=== PATIENT | female | born 1935 | race Caucasian/White ===

== ENCOUNTER 2017-07-17 05:42 | Outpatient (CLI) | payer MEDICARE ==
[~2017-07-17] VITALS: Ht 157.5 cm; Wt 71.2 kg
[~2017-07-17 05:42] MED LIST: AMLO5TAB2 PO; ENAL20TA PO; ZONI100C11 PO
[2017-07-17] MEDS ORDERED: AMLO5TAB2 PO (11:10)
[2017-07-17] MEDS ORDERED: ENAL20TA PO (11:10)
== END 2017-07-17 11:14 ==
LOC: PREOP 05:42
PROVIDERS: ATTEND Surgery
DX: Z01.818 Encounter for other preprocedural examination (principal); Z12.11 Encounter for screening for malignant neoplasm of colon; R13.10 Dysphagia, unspecified

== ENCOUNTER 2017-07-24 06:17 | Day surgery (SDC) | payer MEDICARE ==
[~2017-07-24] VITALS: Ht 157.5 cm; Wt 71.2 kg
[2017-07-24] MEDS ORDERED: LACTATED RINGERS 1,000 ML IV ONE (07:12)
[2017-07-24] MEDS ORDERED: LACTATED RINGERS 1,000 ML IV STA (07:25)
[2017-07-24] MEDS ORDERED: HURRICAINE EXT TUBE (BENZOCAINE) XX PRN (07:30)
[2017-07-24 07:32] VITALS: BP 109/73
[2017-07-24] MEDS ORDERED: PROPOFOL INJECTION 50 ML IV ONE (07:33)
[2017-07-24] MEDS ORDERED: MIDAZOLAM 2 MG/2 ML (VERSED) VIAL ONE (07:33)
--- NOTE | 2017-07-24 07:43 | Progress Note-Pre Operative ---
Pre-Operative Progress Note H&P Reviewed The H&P was reviewed, patient examined and no changes noted. Date Seen by Provider: Jul 24, 2017 Time Seen by Provider: 07:43 Date H&P Reviewed: Jul 24, 2017 Time H&P Reviewed: 07:43 Pre-Operative Diagnosis: screening colonoscopy, dysphagia DEMETRICE SINCLAIR DO Jul 24, 2017 7:43 am
[2017-07-24] MEDS ORDERED: HURRICAINE EXT TUBE (BENZOCAINE) ONE (08:29)
--- NOTE | 2017-07-24 08:29 | Progress Note-Post Operative ---
Post-Operative Progess Note Surgeon (s)/Gem Expert (s) Surgeon DEMETRICE SINCLAIR DO Gem Expert: na Pre-Operative Diagnosis screening colonoscopy, dysphagia Post-Operative Diagnosis distal esophageal stricture, hiatal hernia, colon polyp x 2 descending colon Procedure & Operative Findings Date of Procedure 07/24/17 Procedure Performed/Findings egd c biopsies, colonoscopy hot bx polypectomy x 2 Anesthesia Type per technician's helper Estimated Blood Loss Estimated blood loss (mL): scant Specimens/Packing Specimens Removed distal esophagus, 2 descending colon polyps DEMETRICE SINCLAIR DO Jul 24, 2017 08:29
[2017-07-24 08:30] VITALS: BP 126/71
[2017-07-24] MEDS ORDERED: SUCR1TAB36 PO (08:36)
[2017-07-24] MEDS ORDERED: PANT40TA2 PO (08:36)
--- NOTE | 2017-07-24 08:38 | Discharge Inst-Simple/Standard ---
Discharge Inst-Standard Discharge Medications New, Converted or Re-Newed RX: Transmitted to Pharmacy Patient Instructions/Follow Up Plan of Care/Instructions/FU: 2 weeks Avery Activity as Tolerated: Yes Discharge Diet: Soft Diet DEMETRICE SINCLAIR DO Jul 24, 2017 08:38
[2017-07-24 09:00] VITALS: BP 124/68
[2017-07-24 09:13] VITALS: BP 124/68
--- NOTE | 2017-07-24 13:23 | OPERATIVE REPORT ---
DATE OF SERVICE: 07/24/2017 PREOPERATIVE DIAGNOSES: Screening colonoscopy and dysphagia. POSTOPERATIVE DIAGNOSES: Distal esophageal stricture, hiatal hernia and descending colon polyp x2. PROCEDURE: EGD with biopsies, colonoscopy with hot biopsy polypectomy x2. SURGEON: Demetrice Varela DO. ANESTHESIA: Per EQUIPMENT WORKER. ESTIMATED BLOOD LOSS: Scant. COMPLICATIONS: None. INDICATIONS: The patient is an 82-year-old female who has been having episodes of dysphagia. She also has history of colon polyps and has not had a colonoscopy in greater than 10 years. She understands risks and benefits of procedure and wished to proceed with procedure. Consent was signed on the chart. DESCRIPTION OF PROCEDURE: The patient was taken to the endoscopy suite, placed in left lateral recumbent position. Timeout was performed. Scope was inserted in mouth, down the esophagus. Distal portion of esophagus with a slight narrowing. The scope was able to be manipulated through this area, but did slightly dilate stricture with scope. The scope continued to be in the stomach and into the duodenum without difficulty. There were no polyps, mass or ulcerations within the duodenum. The scope was slowly retracted back into the stomach where it was further insufflated. There are no polyps, mass or ulcerations. The scope was retroflexed noting a hiatal hernia. Scope was returned to its normal position and slowly withdrawn to the distal esophagus. There was little bit of bleeding from where the stricture was dilated with the scope. Biopsy of this area was obtained. Another small area of a small polyp which biopsy was obtained as well. Scope was then slowly retracted back until completely removed, noting no other pathology. RECOMMENDATIONS: The patient will be placed on Carafate and Protonix. We will repeat EGD in approximately six weeks to reevaluate him possibly to do further dilation. The patient will not need a repeat colonoscopy unless she has any symptoms due to age and risks and benefits. Job ID: [id number] DocumentID: [id number] Dictated Date: 07/24/2017 08:50:05 Well Drill Operator Date: 07/24/2017 13:22:16 Dictated By: DEMETRICE VARELA DO [facility], [place]
--- NOTE | 2017-08-01 06:43 | OPERATIVE REPORT ---
DATE OF SERVICE: 07/24/2017 ADDENDUM PREOPERATIVE DIAGNOSES: Screening colonoscopy and dysphagia. POSTOPERATIVE DIAGNOSES: Distal esophageal stricture, hiatal hernia and descending colon polyp x2. PROCEDURE: EGD with biopsies, colonoscopy with hot biopsy polypectomy x2. SURGEON: Demetrice Varela DO. ANESTHESIA: Per EDGER TAILER. ESTIMATED BLOOD LOSS: Scant. COMPLICATIONS: None. INDICATIONS: The patient is an 82-year-old female who has been having episodes of dysphagia. She also has history of colon polyps, has not had a colonoscopy greater than 10 years. She understands risks and benefits of procedure and wished to proceed with procedure. Consent was signed on the chart. See note for EGD. COLONOSCOPY. DESCRIPTION OF PROCEDURE: Digital rectal exam was performed. There were no palpable polyps, masses or ulcerations. Scope was inserted in the rectum and advanced all the way to the cecum with minimal difficulty. Prep was adequate. Scope was then slowly retracted back. There were no polyps, masses or ulcerations in the cecum, ascending, transverse colon. Within the descending colon, there were 2 small polyps which were present. Hot biopsy polypectomy was performed on these 2 polyps. Scope was then continuously retracted back. There were no polyps, masses or ulcerations in the sigmoid colon. Scope was continued slowly retracted back into the rectum where it was also retroflexed noting no other pathology. Scope was returned to its normal position, slowly withdrawn until completely removed. RECOMMENDATIONS: The patient will not need a repeat colonoscopy unless she is having symptoms. She will follow up on biopsies in approximately 2 to 3 weeks. Job ID: [id number] DocumentID: [id number] Dictated Date: 07/31/2017 07:57:35 Hand Binder Stripper Date: 07/31/2017 14:35:04 Dictated By: DEMETRICE VARELA DO
== END 2017-07-24 09:05 | disposition home or self-care (01) ==
LOC: ENDO 06:17
PROVIDERS: ATTEND Surgery
DX: Z12.11 Encounter for screening for malignant neoplasm of colon (principal); K63.5 Polyp of colon; K22.2 Esophageal obstruction; K44.9 Diaphragmatic hernia without obstruction or gangrene; I10 Essential (primary) hypertension; Z79.899 Other long term (current) drug therapy

== ENCOUNTER → 2017-08-01 | Outpatient (CLI) | payer MEDICARE ==
[~2017-08-01] MED LIST changes: +PANT40TA2 PO; +SUCR1TAB36 PO
--- NOTE | 2017-08-02 08:32 | Diagnostic Imaging Report ---
Bilateral screening mammogram 2D views with tomosynthesis The current study was also evaluated with a Computer Aided Detection (CAD) system. Indication: Screening. No current complaints stated on the questionnaire. COMPARISON: 07/31/2016. Findings: The breasts are composed of heterogeneously dense parenchyma which may decrease mammographic sensitivity. There is no mass, architectural distortion or suspicious is opacification. Allowing for technique and positional differences, no suspicious change is seen. IMPRESSION: No significant change. ACR BI-RADS Category 2: Benign findings. Result letter will be mailed to the patient. Note: At least 10% of breast cancer is not imaged by mammography. Dictated by: Dictated on workstation # [id number]
== END ==
LOC: RAD 08:49
PROVIDERS: ATTEND Family Medicine
DX: Z12.31 Encounter for screening mammogram for malignant neoplasm of breast (principal); I10 Essential (primary) hypertension
CPT/HCPCS: 77067

== ENCOUNTER → 2018-08-02 | Outpatient (CLI) | payer MEDICARE ==
[~2018-08-02] MED LIST changes: +AMLO5TAB7 PO
--- NOTE | 2018-08-05 10:27 | Diagnostic Imaging Report ---
INDICATION: Routine screening. Comparison is made with prior mammograms from 08/01/2017 and 07/31/2016. 2-D and 3-D bilateral screening mammography was performed with a Computer Aided Detection (CAD) system. FINDINGS: Both breasts are heterogeneously dense, limiting the sensitivity of mammography. The parenchymal pattern is stable. No dominant mass or malignant appearing microcalcifications are seen. The axillae are unremarkable. IMPRESSION: No mammographic features suspicious for malignancy are identified. ACR BI-RADS Category 2: Benign findings. Result letter will be mailed to the patient. Note: At least 10% of breast cancer is not imaged by mammography. Dictated by: Dictated on workstation # [id number]
== END ==
LOC: RAD 13:14
PROVIDERS: ATTEND Family Medicine
DX: Z12.31 Encounter for screening mammogram for malignant neoplasm of breast (principal)
CPT/HCPCS: 77067

== ENCOUNTER → 2019-08-04 | Outpatient (CLI) | payer MEDICARE ==
[~2019-08-04] MED LIST changes: -AMLO5TAB7 PO; +AMLO5TAB9 PO
--- NOTE | 2019-08-04 15:03 | Diagnostic Imaging Report ---
INDICATION: Routine screening. Comparison is made with prior mammograms from 08/02/2018 and 08/01/2017. 2-D and 3-D bilateral screening mammography was performed. The current study was also evaluated with a Computer Aided Detection (CAD) system. 3-D tomosynthesis was also performed and reviewed. FINDINGS: Both breasts are heterogeneously dense, limiting the sensitivity of mammography. The parenchymal pattern is stable. There are benign calcifications. No mass or malignant-appearing microcalcifications are seen. Axillae are unremarkable. IMPRESSION: No mammographic features suspicious for malignancy are identified. ACR BI-RADS Category 2: Benign findings. Result letter will be mailed to the patient. Note: At least 10% of breast cancer is not imaged by mammography. Dictated by: Dictated on workstation # [id number]
== END ==
LOC: RAD 10:55
PROVIDERS: ATTEND Family Medicine
DX: Z12.31 Encounter for screening mammogram for malignant neoplasm of breast (principal); Z00.00 Encounter for general adult medical examination without abnormal findings
CPT/HCPCS: 77067

== ENCOUNTER → 2021-02-15 | Outpatient (CLI) | payer MEDICARE ==
[~2021-02-15] MED LIST changes: +AMLO-250 PO; -AMLO5TAB9 PO; +ENAL20TA16 PO
--- NOTE | 2021-02-15 14:55 | Diagnostic Imaging Report ---
Indication: Routine screening. Comparison is made with prior mammogram 08/04/2019 and 08/02/2018. 2-D and 3-D bilateral screening mammography was performed with CAD. Both breasts are heterogeneously dense, limiting the sensitivity of mammography. The parenchymal pattern is stable. No dominant mass or malignant appearing microcalcifications are seen. Axillae are unremarkable. IMPRESSION: BI-RADS Category 2 No mammographic features suspicious for malignancy are identified. ACR BI-RADS Category 2: Benign findings. Result letter will be mailed to the patient. Note: At least 10% of breast cancer is not imaged by mammography. Dictated by: Dictated on workstation # [id number]
== END ==
LOC: RAD 12:45
PROVIDERS: ATTEND Family Medicine
DX: Z12.31 Encounter for screening mammogram for malignant neoplasm of breast (principal)
CPT/HCPCS: 77063; 77067

== ENCOUNTER → 2022-02-16 | Outpatient (CLI) | payer MEDICARE ==
--- NOTE | 2022-02-16 13:00 | Diagnostic Imaging Report ---
INDICATION: Routine screening. Comparison is made with prior mammogram from 02/15/2021 and 08/04/2019. 2-D and 3-D bilateral screening mammography was performed with CAD. Both breasts are heterogeneously dense, limiting the sensitivity of mammography. There is a density in the medial aspect of the right breast posterior depth best seen on the CC view which appears to be more prominent than prior exam. No definite corresponding density on the MLO view is seen. Left breast is unremarkable. Occasional benign calcifications are noted. There are no malignant-appearing microcalcifications. Axillae are unremarkable. IMPRESSION: Right breast density. Additional views recommended for further evaluation. ACR BI-RADS Category 0: Incomplete. (Needs additional imaging evaluation). Result letter will be mailed to the patient. Note: At least 10% of breast cancer is not imaged by mammography. BI-RADS 0 Dictated by: Dictated on workstation # [id number]
== END ==
LOC: RAD 10:15
PROVIDERS: ATTEND Family Medicine
DX: Z12.31 Encounter for screening mammogram for malignant neoplasm of breast (principal)
CPT/HCPCS: 77063; 77067

== ENCOUNTER → 2022-03-08 | Outpatient (CLI) | payer MEDICARE ==
--- NOTE | 2022-03-08 13:06 | Diagnostic Imaging Report ---
EXAMINATION: Unilateral diagnostic right mammogram with CAD. INDICATION: Abnormal screening mammogram. FINDINGS: The recent screening mammogram performed on 02/16/2022 noted a density in the medial aspect of the right breast at posterior depth. There was no corresponding abnormality on the MLO view. On the compression views of this area and the rolled views, that finding is not as conspicuous. This density cannot be identified on the true lateral view either. I suspect it is secondary to fibroglandular tissue alone. Even so, I would recommend that ultrasound of the right breast be performed for further study. IMPRESSION: Ultrasound would be recommended for further evaluation of the right breast. ACR BI-RADS Category 0: Incomplete. (Needs additional imaging evaluation). Result letter will be mailed to the patient. Note: At least 10% of breast cancer is not imaged by mammography. Dictated by: Dictated on workstation # [id number]
--- NOTE | 2022-03-08 13:55 | Diagnostic Imaging Report ---
EXAMINATION: Ultrasound of the right breast. INDICATION: Abnormal mammogram. FINDINGS: The screening mammogram performed on 03/03/2022 noted a neodensity in the midportion of the right breast. The diagnostic mammogram performed prior to this study failed to show any sign of malignancy, however. On this exam, there is a small 5 x 2 x 4 mm benign-appearing cyst in the 3 o'clock position roughly 4 cm from the nipple. I am not certain if this corresponds to the finding on the screening mammogram. At any rate, there is no evidence for a solid mass to suggest malignancy. IMPRESSION: 1. There is a small cyst in the midportion of the right breast but there is no evidence for malignancy. 2. The patient should have her annual screening mammogram on schedule in February 2023. ACR BI-RADS Category 1: Negative. Result letter will be mailed to the patient. Note: At least 10% of breast cancer is not imaged by mammography. Dictated by: Dictated on workstation # [id number]
== END ==
LOC: RAD 12:29
PROVIDERS: ATTEND Family Medicine
DX: N60.01 Solitary cyst of right breast (principal)
CPT/HCPCS: 76642; 77065; G0279